=== PATIENT | female | born 1965 | race Caucasian/White ===

== ENCOUNTER 2024-09-14 09:23 | Inpatient (IN) | payer BC, OTHER ==
[~2024-09-14] VITALS: Ht 160 cm; Wt 94.3 kg
--- NOTE | 2024-09-14 09:56 | ED.PDOC ---
SOB-HPI HPI Comments 59 Y F presents to the ED with CC of SOB. Patient states that she has been experiencing SOB, with associated symptoms of congestion and cough. Patient relays that she has experienced previous episodes like this in the past during seasonal changes. Patient states that her only current medication is amoxicillin, which was prescribed by a telehealth doctor she saw on 09/09/24. She denies any other current medication use in addition to tobacco, ETOH, or illicit drugs use. Patient denies chest pain, chills, fever, or body aches. Time Seen by MD: 09:50 Reviewed notes: Nurses Notes, Medications, Allergies Information Source: Patient Mode of Arrival: Ambulatory Severity: Moderate Timing: Days Duration: Since onset Prehospital treatment: None Modifying Factors: Nothing Associated Signs and Symptoms: Cough, Nasal Congestion Past Medical History Past Medical History (Other): brochitis, PNA, strepp throat Surgical History: Appendectomy, Hysterectomy (complete ), Tonsillectomy OCCUPATIONAL THERAPIST'S ASSISTANT History: No Pertinent OCCUPATIONAL THERAPIST'S ASSISTANT History Family History Family History: Unknown Social History Smoker: Non-Smoker Alcohol: Denies ETOH Use Drugs: Denies Drug Use Lives In: Home Constitutional: denies: chills, diaphoresis, fatigue, fever, malaise, sweats, weakness, others EENTM: reports: nose congestion; denies: blurred vision, double vision, ear bleeding, ear discharge, ear drainage, ear pain, ear ringing, eye pain, eye redness, hearing loss, mouth pain, mouth swelling, nasal discharge, nose bleeding, nose pain, photophobia, tearing, throat pain, throat swelling, voice changes, others Respiratory: reports: cough, shortness of breath; denies: hemoptysis, orthopnea, SOB at rest, SOB with excertion, stridor, wheezing, others Cardiovascular: denies: chest pain, dizzy spells, diaphoresis, Dyspnea on exertion, edema, irregular heart beat, left arm pain, lightheadedness, palpitations, PND, syncope, others Gastrointestinal: denies: abdomen distended, abdominal pain, blood streaked bowels, constipated, diarrhea, dysphagia, difficulty swallowing, hematemesis, melena, nausea, poor appetite, poor fluid intake, rectal bleeding, rectal pain, vomiting, others Genitourinary: denies: abnormal vagina bleeding, burning, dyspareunia, dysuria, flank pain, frequency, hematuria, incontinence, pain, , vagina discharge, urgency, others Neurological: denies: dizziness, fainting, headache, left sided numbness, left sided weakness, numbness, paresthesia, pre-existing deficit, right sided numbness, right sided weakness, seizure, speech problems, tingling, tremors, weakness, others Musculoskeletal: denies: back pain, gout, joint pain, joint swelling, muscle pain, muscle stiffness, neck pain, others Integumetry: denies: bruises, change in color, change in hair/nails, dryness, laceration, lesions, lumps, rash, wounds, others Allergic/Immunocompromised: denies: Difficulty Healing, Frequent Infections, Hives, Itching, others Hematologic/Lymphatic: denies: anemia, blood clots, easy bleeding, easy bruising, swollen glands, others Endocrine: denies: excessive hunger, excessive sweating, excessive thirst, excessive urination, flushing, intolerance to cold, intolerance to heat, unexplained weight gain, unexplained weight loss, others Psychiatric: denies: anxiety, bipolar disorder, depression, hopeless, panic disorder, schizophrenia, sleepless, suicidal, others All Other Systems: Reviewed and Negative Physical Exam General Appearance: Moderate Distress, Normal HEENT: Normal ENT Inspection, Pharynx Normal, TMs Normal Neck: Full Range of Motion, Non-Tender, Normal, Normal Inspection Respiratory: Chest Non-Tender, No Accessory Muscle Use, No Respiratory Distress, Wheezing Cardiovascular: No Edema, No JVD, No Murmur, No Gallop, Normal Peripheral Pulses, Regular Rate/Rhythm Breast Exam: Deferred Gastrointestinal: No Organomegaly, Non Tender, No Pulsatile Mass, Normal Bowel Sounds, Soft Genitalia: Deferred Pelvic: Deferred Rectal: Deferred Extremities: No calf tenderness, Normal capillary refill, Normal inspection, Normal range of motion, Non-tender, No pedal edema Musculoskeletal : Apperance: Normal Neurologic: Alert, aligner typewriter II-XII nml as Tested, No Motor Deficits, Normal Affect, Normal Mood, No Sensory Deficits Cerebellar Function: NOT DONE Reflexes: NOT DONE Skin: Dry, Normal Color, Warm Peripheral Pulses: 3+ Radial (R), 3+ Radial (L) Lymphatic: No Adenopathy EKG EKG : Pulse Rate (adult): 58 [place]: Normal Cardiac Rhythm: NSR Block: None Hypertrophy: None ST: Normal Was a procedure done? Was a procedure done?: No Differential Dx Differential Diagnosis: Anxiety, Asthma, Bronchitis, CHF, COPD, Pneumonia, Sinusitis, Pharyngitis X-Ray, Labs, Meds, VS Vital Signs Date Time Temp Pulse Resp B/P (MAP) Pulse Ox O2 Delivery O2 Flow Rate FiO2 09/14/24 10:41 57 20 95 Room Air* 0 21 09/14/24 10:41 98.9 57 20 141/66 (91) 95 98.9 09/14/24 10:32 58 09/14/24 10:04 58 09/14/24 09:57 97.5 80 18 150/57 (88) 96 Lab Test 09/14/24 10:07 Range/Units White Blood Count 2.4 L 4.4-10.8 10^3/uL Red Blood Count 4.50 4.0-5.20 10^6/uL Hemoglobin 13.7 12.2-16.2 g/dL Hematocrit 39.5 36.0-46.0 % Mean Corpuscular Volume 87.7 80.0-100.0 fL Mean Corpuscular Hemoglobin 30.5 28.0-32.0 pg Mean Corpuscular Hemoglobin Concent 34.8 32.0-36.0 g/dL Red Cell Distribution Width 13.2 11.8-14.3 % Platelet Count 62 L 140-450 10^3/uL Mean Platelet Volume 9.1 6.9-10.8 fL Neutrophils (%) (Auto) 65.2 37.0-80.0 % Lymphocytes (%) (Auto) 21.1 10.0-50.0 % Monocytes (%) (Auto) 12.2 H 0.0-12.0 % Eosinophils (%) (Auto) 1.3 0.0-7.0 % Basophils (%) (Auto) 0.2 0.0-2.0 % Neutrophils # (Auto) 1.5 L 1.6-8.6 10 ^3/uL Lymphocytes # (Auto) 0.5 0.4-5.4 10 ^3/uL Monocytes # (Auto) 0.3 0-1.3 10 ^3/uL Eosinophils # (Auto) 0 0-0.8 10 ^3/uL Basophils # (Auto) 0 0-0.2 10 ^3/uL Nucleated Red Blood Cells 0.2 % Sodium Level 142 136-145 mmol/L Potassium Level 3.8 3.5-5.1 mmol/L Chloride Level 111 H 98-107 mmol/L Carbon Dioxide Level 24 20-31 mmol/L Anion Gap 7 5-15 Blood Urea Nitrogen 9 9-23 mg/dL Creatinine 0.79 0.550-1.02 mg/dL Glomerular Filtration Rate Calc 86 >90 mL/min BUN/Creatinine Ratio 11.4 10.0-20.0 Serum Glucose 78 74-106 mg/dL Calcium Level 9.5 8.7-10.4 mg/dL Troponin I High Sensitivity 3 L </=34 ng/L Current Medications Medications (Trade) Dose Ordered Sig/Danny Route Start Time Stop Time Status Last Admin Methylprednisolone Sodium Succinate (Solu Medrol) 125 mg ONCE ONCE IM 09/14/24 10:45 09/14/24 10:46 DC 09/14/24 10:47 CXR: [place] [id number] Ph: [phone] DIAGNOSTIC IMAGING Diagnostic Imaging Report : [id number] Signed PATIENT: YOAV PANIAGUA ACCT: [id number] UNIT: [id number] : 1965 LOC: ER ROOM / BED: / AGE / SEX: 59 / F ADM STATUS: REG ER SERVICE [id number] ORDERING PHYSICIAN: VIET BLACKMON MD PROCEDURE(s): CXRP - CHEST PORTABLE REASON: sob ORDER NUMBER(s): [id number], ACCESSION NUMBER(s): [id number] EXAM: XY CHEST PORTABLE Indication: sob Technique: Single frontal view of the chest was obtained Comparison: None FINDINGS: Lines and Tubes: None Lungs: No focal consolidation. Pleura: No effusion. No pneumothorax. Cardiomediastinal contours: Unremarkable Bones: No acute osseous abnormality. IMPRESSION: No acute cardiopulmonary disease. ATED BY: VILMA BECERRA MD DICTATED DATE/TIME: 09/14/24 1038 SIGNED BY: VILMA BECERRA MD SIGNED DATE/TIME: 09/14/24 1038 CC: Patient alert. Complaining of shortness a breath. Denies smoking. History of bronchitis. Chest x-ray reviewed does not show any acute changes. Continues to have shortness a breath. Echocardiogram. Cardiology consultation. Possible cardiac related. WBC is low. Possible pneumonia. Reviewed her history. Explained to the patient. Continue cardiac monitoring. Time of 1ST Reevaluation: 10:20 Reevaluation 1ST: Unchanged Patient Education/Counseling: Diagnosis, Treatment Family Education/Counseling: No Family Present Departure 1 Departure Time of Disposition: 11:06 Impression: Primary Impression: Acute respiratory distress Additional Impression: COPD (chronic obstructive pulmonary disease) Qualified Codes: J44.9 - Chronic obstructive pulmonary disease, unspecified Disposition: ADMITTED INPATIENT Admit to: Med Surg Condition: Guarded Critical Care Note Critical Care Time?: Yes (45 min-critical care time only) Stability Stability form required: No Heart Score Heart Score: Heart Score Response (Comments) Value History N/A 0 EKG Normal 0 Age 45-64 1 Risk Factors >3 or Hx ASHD 2 Troponin Normal limit 0 Total 3 I personally scribed for VIET BLACKMON MD ([email or web address]) on 09/14/24 at 09:56. Electronically submitted by Alex Hebert ([email or web address]). I personally scribed for VIET BLACKMON MD ([email or web address]) on 09/14/24 at 10:04. Electronically submitted by Alex Hebert ([email or web address]). I personally scribed for VIET BLACKMON MD ([email or web address]) on 09/14/24 at 10:32. Electronically submitted by Alex Hebert ([email or web address]). I personally scribed for VIET BLACKMON MD ([email or web address]) on 09/14/24 at 10:52. Electronically submitted by Alex Hebert ([email or web address]). I personally scribed for VIET BLACKMON MD ([email or web address]) on 09/14/24 at 11:01. Electronically submitted by Alex Hebert ([email or web address]). VIET BLACKMON MD Sep 14, 2024 09:56
[2024-09-14] MEDS ORDERED: methylPREDNISolone SOD SUCC 125 MG/2 ML VL IV ONE (10:00)
[2024-09-14 10:26] LABS: Basophils # (auto) 0 10 ^3/uL (0-0.2); Basophils % (auto) 0.2 % (0.0-2.0); Eosinophils # (auto) 0 10 ^3/uL (0-0.8); Hemoglobin 13.7 g/dL (12.2-16.2); Lymphocytes # (auto) 0.5 10 ^3/uL (0.4-5.4); Mean Corpuscular Hgb Conc. 34.8 g/dL (32.0-36.0); Monocytes # (auto) 0.3 10 ^3/uL (0-1.3); Platelet Count (auto) 62 10^3/uL (140-450); Red Cell Distribution Width 13.2 % (11.8-14.3)
[2024-09-14 10:30] LABS: Eosinophils % (auto) 1.3 % (0.0-7.0); Hematocrit 39.5 % (36.0-46.0); Lymphocytes % (auto) 21.1 % (10.0-50.0); Mean Corpuscular Hemoglobin 30.5 pg (28.0-32.0); Mean Corpuscular Volume 87.7 fL (80.0-100.0); Monocytes % (auto) 12.2 % (0.0-12.0); Neutrophils # (auto) 1.5 10 ^3/uL (1.6-8.6); Neutrophils % (auto) 65.2 % (37.0-80.0); Nucleated Red Blood Cells % 0.2 %; White Blood Cell 2.4 10^3/uL (4.4-10.8)
--- NOTE | 2024-09-14 10:39 | DVH ---
EXAM: XY CHEST PORTABLE Indication: sob Technique: Single frontal view of the chest was obtained Comparison: None FINDINGS: Lines and Tubes: None Lungs: No focal consolidation. Pleura: No effusion. No pneumothorax. Cardiomediastinal contours: Unremarkable Bones: No acute osseous abnormality. IMPRESSION: No acute cardiopulmonary disease.
[2024-09-14 10:41] VITALS: PULSE 57; RESP 20; O2SAT 95
[2024-09-14 10:41] LABS: Potassium 3.8 mmol/L (3.5-5.1); Sodium 142 mmol/L (136-145)
[2024-09-14 10:42] LABS: Anion Gap 7 (5-15); Calcium 9.5 mg/dL (8.7-10.4); Carbon Dioxide 24 mmol/L (20-31)
[2024-09-14 10:47] LABS: BUN/Creatinine Ratio 11.4 (10.0-20.0); Blood Urea Nitrogen 9 mg/dL (9-23); Glucose 78 mg/dL (74-106)
[2024-09-14] MEDS: methylPREDNISolone SOD SUCC 125 MG/2 ML VL IM ONE (10:47)
[2024-09-14 10:51] LABS: Chloride 111 mmol/L (98-107)
[2024-09-14 13:51] LABS: Urine Bacteria None Seen /hpf (None Seen)
[2024-09-14 14:12] LABS: Urine Blood Negative /uL (Negative); Urine Clarity Clear (Clear); Urine Color Yellow (Yellow); Urine Protein, UAD 2+ (Negative); Urine Specific Gravity 1.035 (1.001-1.035); Urine Urobilinogen 2 mg/dL (Negative); Urine WBC 1 /hpf (0 - 5)
[2024-09-14] MEDS ORDERED: ALBUTEROL SULF 2.5 MG/0.5ML(0.5%) NEB SOLN NEB PRN (15:00)
--- NOTE | 2024-09-14 15:43 | DVHHP2 ---
History of Present Illness Reason for Visit: Shortness of breath History of Present Illness 59-year-old obese patient with complaints of shortness of breath patient has a underlying medical history bronchitis and suspected COPD patient states he has been having shortness of breath for the last 2 weeks initially was seen on [facility] and prescribed antibiotics patient states his symptoms have not improved and continues to have shortness of breath and cough patient was recommended by the ED for admission and further evaluation and management of suspected pneumonia Pulmonary: Bronchitis, COPD Review of Systems Constitutional: Yes: Weakness; No: Fever, Chills, Sweats, Malaise, Other Eyes: No: Pain, Vision change, Conjunctivae inflammation, Eyelid inflammation, Other, Redness ENT: No: Ear pain, Ear discharge, Nose pain, Nose discharge, Nose congestion, Mouth pain, Mouth swelling, Throat pain, Throat swelling, Other Respiratory: Cough, Dry, Shortness of breath, SOB with excertion; No: Wheezing, Hemoptysis, Pleuritic Pain, Sputum, Wheezing, Other Cardiovascular: No: Chest Pain, Palpitations, Orthopnea, Paroxysmal Noc. Dyspnea, Edema, Lt Headedness, Other Gastrointestinal: No: Nausea, Vomiting, Abdominal Pain, Diarrhea, Constipation, Melena, Hematochezia, Other Genitourinary: No Dysuria, No Frequency, No Incontinence, No Hematuria, No Retention, No Other Musculoskeletal: No: other, neck pain, shoulder pain, arm pain, back pain, hand pain, leg pain, foot pain Skin: No: Rash, Lesions, Jaundice, Bruising, Other Neurological: No: Weakness, Numbness, Incoordination, Change in speech, Confusion, Seizures, Other Allergies: Coded Allergies: NO KNOWN ALLERGIES (Unverified , 09/14/24) Exam Vital Signs Vital Signs Date Time Temp Pulse Resp B/P (MAP) Pulse Ox O2 Delivery O2 Flow Rate FiO2 09/14/24 10:41 57 20 95 Room Air* 0 21 09/14/24 10:41 98.9 141/66 (91) 98.9 General Appearance: Alert, Oriented X3, Cooperative, moderate distress HEENT: Atraumatic, PERRLA, EOMI Respiratory: Clear to auscultation, Normal air movement Cardiovascular: Regular rate, Normal S1, Normal S2 Abdominal: Normal bowel sounds, Soft Extremities: No clubbing, No cyanosis Skin: No rashes, No breakdown Neuro: Normal gait, Normal speech Psych/Mental Status: Mood NL Labs/Xrays Labs Test 09/14/24 13:10 09/14/24 10:07 Range/Units Urine Color Yellow Yellow Urine Clarity Clear Clear Urine pH 6.0 5.0-9.0 Urine Specific [place] 1.035 1.001-1.035 Urine Protein 2+ H Negative Urine Ketones Negative Negative Urine Blood Negative Negative /uL Urine Nitrite Negative Negative Urine Bilirubin Negative Negative Urine Urobilinogen 2 H Negative mg/dL Urine Leukocyte Esterase Negative Negative /uL Urine RBC 3 0 - 4 /hpf Urine WBC 1 0 - 5 /hpf Urine Squamous Epithelial Cells Few <5 /hpf Urine Bacteria None seen None Seen /hpf Urine Glucose Normal Normal mg/dL White Blood Count 2.4 L 4.4-10.8 10^3/uL Red Blood Count 4.50 4.0-5.20 10^6/uL Hemoglobin 13.7 12.2-16.2 g/dL Hematocrit 39.5 36.0-46.0 % Mean Corpuscular Volume 87.7 80.0-100.0 fL Mean Corpuscular Hemoglobin 30.5 28.0-32.0 pg Mean Corpuscular Hemoglobin Concent 34.8 32.0-36.0 g/dL Red Cell Distribution Width 13.2 11.8-14.3 % Platelet Count 62 L 140-450 10^3/uL Mean Platelet Volume 9.1 6.9-10.8 fL Neutrophils (%) (Auto) 65.2 37.0-80.0 % Lymphocytes (%) (Auto) 21.1 10.0-50.0 % Monocytes (%) (Auto) 12.2 H 0.0-12.0 % Eosinophils (%) (Auto) 1.3 0.0-7.0 % Basophils (%) (Auto) 0.2 0.0-2.0 % Neutrophils # (Auto) 1.5 L 1.6-8.6 10 ^3/uL Lymphocytes # (Auto) 0.5 0.4-5.4 10 ^3/uL Monocytes # (Auto) 0.3 0-1.3 10 ^3/uL Eosinophils # (Auto) 0 0-0.8 10 ^3/uL Basophils # (Auto) 0 0-0.2 10 ^3/uL Nucleated Red Blood Cells 0.2 % Sodium Level 142 136-145 mmol/L Potassium Level 3.8 3.5-5.1 mmol/L Chloride Level 111 H 98-107 mmol/L Carbon Dioxide Level 24 20-31 mmol/L Anion Gap 7 5-15 Blood Urea Nitrogen 9 9-23 mg/dL Creatinine 0.79 0.550-1.02 mg/dL Glomerular Filtration Rate Calc 86 >90 mL/min BUN/Creatinine Ratio 11.4 10.0-20.0 Serum Glucose 78 74-106 mg/dL Calcium Level 9.5 8.7-10.4 mg/dL Troponin I High Sensitivity 3 L </=34 ng/L Assessment/Plan Assessment/Plan Admit to [facility] Acute on chronic COPD exacerbation Suspected community-acquired pneumonia IV antibiotics P.o. antibiotics P.r.n. breathing treatments Plan discussed with: Patient Problem List: (1) COPD (chronic obstructive pulmonary disease) (2) Acute respiratory distress Date of Service: Sep 14, 2024 Billing Provider: ISELA AYALA MD Common Visit Codes: [id number] INP/OBS CARE (HIGH) ISELA AYALA MD Sep 14, 2024 15:43
[2024-09-14 15:56] VITALS: BP 141/66; PULSE 75; RESP 20; TEMP 98.9
[2024-09-14] MEDS: cefTRIAXone 1GM/50ML D5W 50 ML IV SCH (16:30)
[2024-09-14] MEDS: AZITHROMYCIN 250 MG TAB PO SCH (16:30)
[2024-09-14 21:13] VITALS: O2SAT 97
[2024-09-14] MEDS ORDERED: methylPREDNISolone SOD SUCC 40 MG/ML VL IV SCH (22:00)
[2024-09-15] VITALS (11 sets, daily range): BP systolic 99–172; BP diastolic 57–76; PULSE 56–88; RESP 16–20; TEMP 97.7–98.1; O2SAT 94–99
[2024-09-15] MEDS ORDERED: AMOX250C3 PO (01:49)
[2024-09-15] MEDS: methylPREDNISolone SOD SUCC 40 MG/ML VL IV SCH (01:59)
[2024-09-15 11:04] LABS: COVID19 ANTIGEN SOFIA FIA NEGATIVE (NEGATIVE); Rapid Influenza A Negative (Negative); Rapid Influenza B Negative (Negative)
--- NOTE | 2024-09-15 14:01 | DVHPN2 ---
Assessment/Plan Assessment/Plan Progress note Subjective 59-year-old female with chronic bronchitis and history of hepatitis-C status post treatment and cirrhosis admitted for COPD exacerbation, received IV steroid, breathing treatment, started on ceftriaxone azithromycin with significant breathing improvement Objective Physical exam Alert, oriented x3 PERRLA No JVD Rhonchi cleared by coughing S1-S2 regular rate and rhythm no murmur Abdomen soft nontender Moving all four extremities No lower extremity edema Lab WBC 2.4 ANC 1500 Platelets 62 Imaging Chest x-ray clear Assessment and plan Acute on chronic hypoxic respiratory failure COPD group E with exacerbation Cirrhosis Thrombocytopenia Neutropenia Leukopenia Maintain oxygen above 92% Empiric coverage with ceftriaxone and azithromycin Solu-Medrol Albuterol and ipratropium nebulizer Monitor platelets, WBC Sent MRSA swab, flu a flu B and COVID Replete electrolytes Diet regular DVT prophylaxis ambulatory Plan discussed with: Patient My Orders Orders - MARCIA KEENE MD Procedure Category Date Status Time Mrsa Screen ARABELLA 09/15/24 In Process 09:41 Dv Inhouse Covid19 ARABELLA 09/15/24 Logged 09:41 Regular Diet DIET 09/15/24 Transmitted Lunch Date of Service: Sep 15, 2024 Billing Provider: MARCIA KEENE MD Common Visit Codes: [id number] INP/OBS CARE(HIGH) MARCIA KEENE MD Sep 15, 2024 14:01
[2024-09-15] MEDS: IPRATROPIUM BROM 0.5 MG/2.5ML INH SOL NEB PRN (21:49)
[2024-09-16 01:00] VITALS: BP 119/43; PULSE 55; RESP 17; TEMP 98; O2SAT 96
[2024-09-16 05:00] VITALS: BP 109/40; PULSE 51; RESP 17; TEMP 97.8; O2SAT 97
[2024-09-16 06:55] LABS: Basophils # (auto) 0 10 ^3/uL (0-0.2); Eosinophils # (auto) 0 10 ^3/uL (0-0.8); Hemoglobin 12.5 g/dL (12.2-16.2); Lymphocytes # (auto) 0.6 10 ^3/uL (0.4-5.4); Lymphocytes % (auto) 19.1 % (10.0-50.0); Mean Corpuscular Hemoglobin 30.4 pg (28.0-32.0); Mean Corpuscular Hgb Conc. 34.7 g/dL (32.0-36.0); Mean Corpuscular Volume 87.5 fL (80.0-100.0); Monocytes # (auto) 0.3 10 ^3/uL (0-1.3); Monocytes % (auto) 8.1 % (0.0-12.0); Neutrophils # (auto) 2.5 10 ^3/uL (1.6-8.6); Neutrophils % (auto) 72.8 % (37.0-80.0); Nucleated Red Blood Cells % 0.2 %; Platelet Count (auto) 62 10^3/uL (140-450); Red Blood Cells 4.11 10^6/uL (4.0-5.20); Red Cell Distribution Width 13.2 % (11.8-14.3); White Blood Cell 3.4 10^3/uL (4.4-10.8)
[2024-09-16 07:10] LABS: Anion Gap 5 (5-15); Carbon Dioxide 26 mmol/L (20-31); Potassium 4.1 mmol/L (3.5-5.1); Sodium 143 mmol/L (136-145)
[2024-09-16 07:11] LABS: Calcium 9.4 mg/dL (8.7-10.4)
[2024-09-16 07:16] LABS: BUN/Creatinine Ratio 18.8 (10.0-20.0); Blood Urea Nitrogen 16 mg/dL (9-23); Glucose 91 mg/dL (74-106)
[2024-09-16 07:24] LABS: Chloride 112 mmol/L (98-107)
[2024-09-16 08:00] VITALS: PULSE 51; RESP 18; O2SAT 96
[2024-09-16 09:00] VITALS: BP 111/50; PULSE 51; RESP 18; TEMP 98.4; O2SAT 96
[2024-09-16] MEDS ORDERED: PRED20TA2 PO (09:38)
[2024-09-16] MEDS ORDERED: ALBU108A5 IN (09:38)
[2024-09-16] MEDS ORDERED: UMEC1INH IN (09:38)
[2024-09-16] MEDS ORDERED: LEVO500T91 PO (09:38)
[2024-09-16] MEDS: predniSONE 20 MG TAB PO SCH (09:56)
[2024-09-16] MEDS: levoFLOXacin 500 MG TAB PO SCH (09:56)
[2024-09-16 11:38] VITALS: BP 111/50; PULSE 51; RESP 18; TEMP 98.4; O2SAT 96
[2024-09-16 12:17] VITALS: BP 138/54; PULSE 60; RESP 18; TEMP 97.7; O2SAT 93
--- NOTE | 2024-09-16 13:39 | DVHDS2 ---
Discharge Summary Date of Admission Sep 14, 2024 at 14:56 Date of Discharge: Sep 16, 2024 Labs/Diagnostic Data: Laboratory Results Test 09/16/24 06:04 09/15/24 09:58 09/15/24 05:27 09/14/24 13:10 White Blood Count 3.4 10^3/uL (4.4-10.8) Red Blood Count 4.11 10^6/uL (4.0-5.20) Hemoglobin 12.5 g/dL (12.2-16.2) Hematocrit 36.0 % (36.0-46.0) Mean Corpuscular Volume 87.5 fL (80.0-100.0) Mean Corpuscular Hemoglobin 30.4 pg (28.0-32.0) Mean Corpuscular Hemoglobin Concent 34.7 g/dL (32.0-36.0) Red Cell Distribution Width 13.2 % (11.8-14.3) Platelet Count 62 10^3/uL (140-450) Mean Platelet Volume 10.2 fL (6.9-10.8) Neutrophils (%) (Auto) 72.8 % (37.0-80.0) Lymphocytes (%) (Auto) 19.1 % (10.0-50.0) Monocytes (%) (Auto) 8.1 % (0.0-12.0) Eosinophils (%) (Auto) 0.0 % (0.0-7.0) Basophils (%) (Auto) 0.0 % (0.0-2.0) Neutrophils # (Auto) 2.5 10 ^3/uL (1.6-8.6) Lymphocytes # (Auto) 0.6 10 ^3/uL (0.4-5.4) Monocytes # (Auto) 0.3 10 ^3/uL (0-1.3) Eosinophils # (Auto) 0 10 ^3/uL (0-0.8) Basophils # (Auto) 0 10 ^3/uL (0-0.2) Nucleated Red Blood Cells 0.2 % Sodium Level 143 mmol/L (136-145) Potassium Level 4.1 mmol/L (3.5-5.1) Chloride Level 112 mmol/L (98-107) Carbon Dioxide Level 26 mmol/L (20-31) Anion Gap 5 (5-15) Blood Urea Nitrogen 16 mg/dL (9-23) Creatinine 0.85 mg/dL (0.550-1.02) Glomerular Filtration Rate Calc 79 mL/min (>90) BUN/Creatinine Ratio 18.8 (10.0-20.0) Serum Glucose 91 mg/dL (74-106) Calcium Level 9.4 mg/dL (8.7-10.4) Influenza Type A Antigen Negative (Negative) Influenza Type B Antigen Negative (Negative) SARS-CoV-2 Antigen (Rapid) Negative (NEGATIVE) Hepatitis B Surface Antigen Negative (Negative) Urine Color Yellow (Yellow) Urine Clarity Clear (Clear) Urine pH 6.0 (5.0-9.0) Urine Specific [place] 1.035 (1.001-1.035) Urine Protein 2+ (Negative) Urine Ketones Negative (Negative) Urine Blood Negative /uL (Negative) Urine Nitrite Negative (Negative) Urine Bilirubin Negative (Negative) Urine Urobilinogen 2 mg/dL (Negative) Urine Leukocyte Esterase Negative /uL (Negative) Urine RBC 3 /hpf (0 - 4) Urine WBC 1 /hpf (0 - 5) Urine Squamous Epithelial Cells Few /hpf (<5) Urine Bacteria None seen /hpf (None Seen) Urine Glucose Normal mg/dL (Normal) Test 09/14/24 10:07 Troponin I High Sensitivity 3 ng/L (</=34) Other Laboratory Tests 09/16/24 06:04 Brief Hx & Hospital Course: 59 F admitted for COPD e. received nebs and steroid, started of ceftriaxone and azithromycin. Significant improvement. Able to tolerate long walks. Discharged with incruse, prednisone, albuterol and levaquin. discussed regarding vaccines but she refused Condition at Discharge: Good Final Diagnosis/Problems List COPD group B with exacerbation Discharge Disposition: Home Discharge Instruct/Medications Diet: Regular Activity: No Restrictions, As Tolerated Follow Up/Referral: Pulmonary PCP Medications: complete prednisone and levofloxacin for 3 days prednisone 2 tabs daily for 5 days in case of exacerbation incruse 1 puff daily albuterol 2 puffs as needed 45 Discharge Statement: "Patient was advised to return to the ER or call 911 if any headaches, dizziness, shortness of breath, chest pain, abdominal pain, bleeding, fevers, or worsening of medical condition. Patient was counseled about treatment plan, medications, possible side effects, patientverbalized understanding. All questions were answered to the best of my ability. This discharge took greater then 30 minutes in planning, reviewing documentation, counseling the patient, and discussing with other team members." ASSESSMENT ASSESSMENT Assessment Acute on chronic hypoxic respiratory failure COPD group B with exacerbation Cirrhosis Thrombocytopenia Neutropenia Leukopenia Date of Service: Sep 16, 2024 Billing Provider: MARCIA KEENE MD Common Visit Codes: [id number] DISCH DAY >30min MARCIA KEENE MD Sep 16, 2024 13:39
== END 2024-09-16 13:26 | disposition home or self-care (01) | DRG 189 ==
LOC: ER 09:23 → OVERFLOW 14:56 → CENTRAL 23:46
PROVIDERS: ADMIT Hospitalist; ATTEND Student in an Organized Health Care Education/Training Program
DX: J96.21 Acute and chronic respiratory failure with hypoxia (principal); J44.1 Chronic obstructive pulmonary disease with (acute) exacerbation; Z20.822 Contact with and (suspected) exposure to COVID-19; D69.6 Thrombocytopenia, unspecified; D70.9 Neutropenia, unspecified; K74.60 Unspecified cirrhosis of liver; Z90.710 Acquired absence of both cervix and uterus
CPT/HCPCS: 36415; 71045; 80048; 81001; 84484; 85025; 87081; 87340; 87426; 87804; 94640; 96372; 99291; G0378